=== PATIENT | female | born 1955 | race Caucasian/White ===

== ENCOUNTER 2022-05-05 13:58 | Outpatient (CLI) | payer BC ==
[~2022-05-05] VITALS: Ht 162.6 cm; Wt 62.6 kg
[2022-05-05] MEDS ORDERED: PREVCR VG (14:55)
[2022-05-05] MEDS ORDERED: SUMA50TA PO (14:55)
[2022-05-05] MEDS ORDERED: FERR236T3 PO (14:55)
[2022-05-05] MEDS ORDERED: VALA500T41 PO (14:55)
[2022-05-05] MEDS ORDERED: DEXL60CA6 PO (14:55)
[2022-05-05 15:13] LABS: BASOPHILS % (AUTO) 0.9 % (0-1); EOSINOPHILS # (AUTO) 0.1 X10'3 (0-0.9); EOSINOPHILS % (AUTO) 1.9 % (0-6); LYMPHOCYTES # (AUTO) 1.5 X10'3 (1.1-4.8); LYMPHOCYTES % (AUTO) 30.3 % (21-51); MEAN CORPUSCULAR HEMOGLOBIN 31.3 PG (27.0-31.0); MEAN CORPUSCULAR HGB CONC 33.9 g/dL (33.0-36.5); MEAN CORPUSCULAR VOLUME 92.4 FL (78-98); MONOCYTES # (AUTO) 0.4 X10'3 (0-0.9); MONOCYTES % (AUTO) 7.4 % (2-12); NEUTROPHILS % (AUTO) 59.5 % (42-75); PRE OP HEMATOCRIT 40.8 % (35.0-45.0); PRE OP HEMOGLOBIN 13.8 g/dL (12.0-16.0); PRE OP PLATELET COUNT 201 X10'3 (140-440); RED BLOOD COUNT 4.41 X10'6 (4.20-5.60)
[2022-05-05 15:26] LABS: ALBUMIN 3.8 G/DL (3.4-5.0); ALBUMIN/GLOBULIN RATIO 1.2 (1.1-1.5); ALKALINE PHOSPHATASE 104 IU/L (46-116); BLOOD UREA NITROGEN 23 MG/DL (7-18); BUN/CREATININE RATIO 31.1 (6.6-38.0); CALCIUM 8.9 MG/DL (8.5-10.1); CHLORIDE 104 MMOL/L (99-107); CREATININE 0.74 MG/DL (0.40-0.90); PRE OP ALT 29 U/L (30-65); PRE OP ANION GAP 6 (8-16); PRE OP AST 25 U/L (10-37); PRE OP BILIRUB, TOTAL 0.3 MG/DL (0.0-1.0); PRE OP GLUCOSE 97 MG/DL (70-104); PRE OP POTASSIUM 4.1 MMOL/L (3.4-5.1); PRE OP SODIUM 140 MMOL/L (135-145); TOTAL CARBON DIOXIDE 30.5 MMOL/L (24-32); eGFR 79 ML/MIN
[2022-05-05] MEDS ORDERED: CHOL20004 PO (16:21)
[2022-05-05] MEDS ORDERED: IRON COMPLEX PO (16:21)
[2022-05-05] MEDS ORDERED: GLUC100017 PO (16:21)
[2022-05-05] MEDS ORDERED: MULT-1085 PO (16:21)
[2022-05-05] MEDS ORDERED: LACT1CAP65 PO (16:21)
[2022-05-05] MEDS ORDERED: HYDROEYE (16:21)
[2022-05-14] MEDS ORDERED: ringers solution, lacted 1,000 ML IV SCH (05:00)
[2022-05-14] MEDS ORDERED: ceFOXitin 2GM-NS 100mL ADDvant 100 ML IV ONE (05:30)
[2022-05-14] MEDS ORDERED: famotidine 20mg tablet PO ONE (05:30)
== END 2022-05-05 23:59 | disposition home or self-care (01) ==
LOC: PRE-OP 13:58 → EDSTATUS 05-14 07:30
PROVIDERS: ATTEND Obstetrics & Gynecology
DX: Z01.818 Encounter for other preprocedural examination (principal); D25.9 Leiomyoma of uterus, unspecified; Z20.822 Contact with and (suspected) exposure to COVID-19
CPT/HCPCS: 36415; 80053; 85025; 86885; 86900; 86901; 87081; 87811; 93005; J0694; J7120